=== PATIENT | male | born 1955 | race Caucasian/White ===

== ENCOUNTER 2024-01-01 08:19 | Day surgery (SDC) | payer MEDICARE, OTHER ==
--- NOTE | 2024-01-01 08:07 | HP ---
HISTORY AND PHYSICAL HISTORY OF PRESENT ILLNESS: Denies any pain, no nausea or vomiting now. Some abnormal thickening of the stomach on CT scan. Needs EGD. Also history of polyps in the past. Last colonoscopy a few years ago. Needs screening colonoscopy. Family history negative for colon cancer, negative for stomach or esophageal cancer. Denies any bloody stools. PAST MEDICAL HISTORY: Following up with urologist, has history of thickened bladder on CT in the past, history of hyperlipidemia, history of stroke, arthritis, fibromyalgia, hypertension, glaucoma, cataracts, and MD in the past. HOME MEDICATIONS: Xalatan 0.005% eye drops, Plavix, gabapentin, Cymbalta, Crestor, Coreg. ALLERGIES: Fentanyl, codeine. PAST SURGICAL HISTORY: Cataract surgery, nasal surgery, appendectomy, carotid surgery and cardiac stent, wrist surgery, and colonoscopy in the past. SOCIAL HISTORY: Smoker every day. Denies alcohol abuse. FAMILY HISTORY: Negative for cancer. REVIEW OF SYSTEMS: Twelve systems reviewed. No chest pain or palpitations. Other systems negative or noncontributory as above and per preadmission questionnaire. PHYSICAL EXAMINATION: GENERAL: Height 5 feet 10 inches. BMI 22.96. No acute distress. HEENT: Sclerae nonicteric. NECK: No JVD. CARDIOVASCULAR: Regular rate and rhythm. RESPIRATORY: Equal excursion, nonlabored breathing. ABDOMEN: Soft. SKIN: Dry. EXTREMITIES: No cyanosis or edema. NEUROLOGIC: Alert. PSYCHIATRIC: Appropriate mood and affect. RECTAL: Deferred until the time of endoscopy exam. ASSESSMENT: Abnormal thickening of the stomach on CT scan. Needs EGD to evaluate for gastritis, peptic ulcer disease, or other etiology. Also needs screening colonoscopy, felt the patient is a candidate. Shown the risk sheet and explained the procedure in detail including but not limited to bleeding or infection, risk of bowel injury or perforation, risk of missed or nondiagnosis, risk of incomplete exam possibly requiring barium enema or barium swallow or other studies or procedure, general risk of sedation or anesthesia, risk of bowel prep but not limited to, consent obtained. We will proceed with EGD and colonoscopy as an outpatient under MAC anesthesia. Otherwise, continue medications for hypertension, heart disease, hyperlipidemia, glaucoma. Hold thinners preop.
[2024-01-01] MEDS: Lactated Ringers 1,000 ML IV SCH (08:56)
[2024-01-01] MEDS ORDERED: DIPRIVAN 200 MG/20 ML IV ONE ×2 (10:21→11:08)
[2024-01-01] MEDS ORDERED: Versed 2 MG/2 ML Injection ONE (10:21)
[2024-01-01 11:40] VITALS: TEMP 97
[2024-01-01 11:52] VITALS: BP 137/81; PULSE 60; RESP 18; O2SAT 100
--- NOTE | 2024-01-02 12:05 | OP ---
SURGERY DATE/TIME: 01/01/2024 1044 - 9815 PREOPERATIVE DIAGNOSES: 1) History of abnormal thickening on CT scan of the stomach, need for upper endoscopy. 2) History of prior history of polyps, needs followup screening colonoscopy. POSTOPERATIVE DIAGNOSES: 1) ASA Class 3. 2) Erosive gastritis with superficial antral ulcer. 3) Short segment distal esophagitis. 4) Colon polyps. 5) Good bowel prep. 6) Withdrawal time approximately 10 minutes. 7) Few diverticula. 8) Small internal and external hemorrhoids. PROCEDURES: 1) Esophagogastroduodenoscopy with cold biopsy of antrum for Helicobacter pylori, cold biopsy of distal esophagus. 2) Colonoscopy to cecum with hot biopsy polypectomy, cecal polyps x2; hot biopsy polypectomy, sigmoid colon polyps x4. SURGEON: Christiano Carrillo MD. ANESTHESIA: MAC. ESTIMATED BLOOD LOSS: Minimal. INDICATIONS: Consent was obtained. DESCRIPTION OF PROCEDURE AND FINDINGS: Patient was taken to the operating room. MAC anesthesia induced. After official time-out and no disagreement for planned procedure, bite block positioned. Videogastroscope easily passed down the esophagus through the patent pylorus, through the junction of the second and third portions of duodenum. Duodenum grossly unremarkable. Scope pulled back in the stomach. There were some petechial hemorrhages, some erosive gastritis. There was a superficial antral ulcer. Cold biopsy taken to evaluate for H pylori. Good hemostasis noted. Otherwise, short segment distal esophagus. Cold biopsy taken for evaluation. No signs of any obvious masses. Scope was withdrawn. There was no immediate complication. Attention then turned to colonoscopy. Digital rectal exam revealed some internal and external hemorrhoids. There were no signs of any large palpable masses. Videocolonoscope inserted and passed up around the slightly tortuous sigmoid, descending, transverse, ascending colon, and around to the cecum. Appendiceal orifice was not well visualized. Prep overall was good. There were 2 small polyps in the cecum, photo documented, appendical area and the ileocecal valve. Two small polyps in the cecum removed with hot biopsy polypectomy. Good hemostasis noted. Scope was carefully withdrawn and around left colon. There were 4 small early polyps versus hyperplastic lesions in the sigmoid colon, removed with hot biopsy polypectomy. Good hemostasis noted. There were a few scattered diverticula as well as some internal hemorrhoids, 1 column was a little more prominent and soft hemorrhoid though. No signs of any obvious masses in the rectum. Scope was withdrawn. Patient tolerated the procedure well. We will see if family with to discuss findings with.
== END 2024-01-01 11:57 | disposition home or self-care (01) ==
LOC: SDC 08:19
PROVIDERS: ATTEND Surgery
DX: Z12.11 Encounter for screening for malignant neoplasm of colon (principal); Z09 Encounter for follow-up examination after completed treatment for conditions other than malignant neoplasm; Z86.010 Personal history of colon polyps; R93.5 Abnormal findings on diagnostic imaging of other abdominal regions, including retroperitoneum; K29.70 Gastritis, unspecified, without bleeding; K25.9 Gastric ulcer, unspecified as acute or chronic, without hemorrhage or perforation; K20.90 Esophagitis, unspecified without bleeding; K63.5 Polyp of colon; K57.30 Diverticulosis of large intestine without perforation or abscess without bleeding; K64.4 Residual hemorrhoidal skin tags; K64.8 Other hemorrhoids
CPT/HCPCS: 93005; J2250; J2704

== ENCOUNTER 2024-03-11 11:03 | Day surgery (SDC) | payer MEDICARE, OTHER ==
--- NOTE | 2024-03-10 16:59 | HP ---
HISTORY OF PRESENT ILLNESS: He is a 68-year-old gentleman who had something on his CAT scan. He underwent EGD, colonoscopy. He is going to need a followup upper endoscopy to evaluate healing of ulcers. PAST MEDICAL HISTORY: Hyperlipidemia, history of stroke, arthritis, pulmonary hypertension, glaucoma, cataracts. History of OR in the past. PAST SURGICAL HISTORY: He had cataract surgery, nasal surgery, appendectomy, carotid surgery in the past, cardiac stents, wrist surgery for fracture and colonoscopy in the past. FAMILY HISTORY: Negative in regards to this problem. SOCIAL HISTORY: History of smoking. No alcohol abuse. MEDICATIONS: Xalatan eyedrops, Plavix, gabapentin, Cymbalta, Crestor, Coreg. ALLERGIES: Fentanyl had a rash, as well as codeine. REVIEW OF SYSTEMS: Twelve systems reviewed. No chest pain or palpitations. Pertinent for as noted above per preadmission assessment. PHYSICAL EXAMINATION: GENERAL: Height 5 feet 10 inches. BMI 22.96. No acute distress. HEENT: Sclerae nonicteric. NECK: No JVD. CHEST: Equal excursion, nonlabored breathing. CARDIOVASCULAR: Regular rate and rhythm. ABDOMEN: Soft. EXTREMITIES: No cyanosis. NEUROLOGIC: Alert. PSYCHIATRIC: Appropriate mood and affect. SKIN: Dry. IMPRESSION: History of ulcer on upper endoscopy. He needs follow up upper endoscopy. Evaluate for healing on proton pump inhibitors. I feel he would benefit from EGD, possible biopsy. General risks of bleeding and infection; risk of bowel injury or perforation; risk of missed or nondiagnosis or incomplete exam possibly requiring other procedure or studies. Consent was obtained and will proceed with outpatient EGD, possible biopsy, MAC anesthesia for followup history of ulcers.
[2024-03-11] MEDS: Lactated Ringers 1,000 ML IV SCH (11:39)
[2024-03-11] MEDS ORDERED: DIPRIVAN 200 MG/20 ML IV ONE (15:21)
[2024-03-11] MEDS ORDERED: Xylocaine-Mpf 2% 5 Ml Vial ONE (15:22)
[2024-03-11] MEDS ORDERED: Versed 2 MG/2 ML Injection ONE (15:22)
[2024-03-11 16:08] VITALS: TEMP 96.6
[2024-03-11 16:20] VITALS: RESP 18; O2SAT 98
[2024-03-11 16:24] VITALS: BP 134/78; PULSE 72
--- NOTE | 2024-03-12 17:10 | OP ---
SURGERY DATE/TIME: 03/11/2024 1522 - 1532 PREOPERATIVE DIAGNOSIS: History of ulcer on prior upper endoscopy, need for followup upper endoscopy to evaluate for healing. POSTOPERATIVE DIAGNOSES: 1) Healed ulcer area from previous. 2) Mild gastric erythema. 3) Minimal mild gastritis. PROCEDURE: Esophagogastroduodenoscopy with cold biopsy of antrum to evaluate for H pylori. SURGEON: Christiano Carrillo MD ANESTHESIA: MAC. ESTIMATED BLOOD LOSS: Minimal. INDICATIONS: Consent obtained. DESCRIPTION OF PROCEDURE AND FINDINGS: The patient was taken to the endoscopy room. MAC anesthesia obtained after official time-out and no disagreement with planned procedure. Bite block positioned. Videogastroscope easily passed down the esophagus into the small-bowel. Small-bowel was unremarkable. No signs of any ulcers where he had the previous superficial ulcer; it appeared as healed. He did have some gastric erythema and some minimal mild gastritis. Cold biopsy taken to evaluate for H pylori. Good hemostasis noted. On retroflexion, GE junction snug against the scope. The scope was straightened. GE junction distal esophagus was stable from last endoscopy, so no additional biopsies were done. The scope was withdrawn. The patient tolerated the procedure well. Findings discussed with his family out in the waiting area.
== END 2024-03-11 16:25 | disposition home or self-care (01) ==
LOC: SDC 11:03
PROVIDERS: ATTEND Surgery
DX: K29.70 Gastritis, unspecified, without bleeding (principal); Z87.11 Personal history of peptic ulcer disease; K25.9 Gastric ulcer, unspecified as acute or chronic, without hemorrhage or perforation; K31.89 Other diseases of stomach and duodenum
CPT/HCPCS: 93005; J2250; J2704